=== PATIENT | female | born 1985 | race Caucasian/White ===

== ENCOUNTER 2017-11-20 17:10 | Emergency (ER) | payer SELFPAY ==
[~2017-11-20] VITALS: Ht 162.6 cm; Wt 53.0 kg
[2017-11-20 17:12] VITALS: BP 140/94
[2017-11-20 17:52] LABS: BASOPHILS # (AUTO) 0.02 x10^3/uL (0-0.1); BASOPHILS % (AUTO) 0 % (0-1); EOSINOPHILS # (AUTO) 0.02 x10^3/uL (0-0.4); EOSINOPHILS % (AUTO) 0 % (1-7); LYMPHOCYTES # (AUTO) 2.76 x10^3/uL (1-3.4); LYMPHOCYTES % (AUTO) 28 % (22-44); MD NO; MEAN CORPUSCULAR HGB CONC 33.2 g/dL (32.4-35.8); MEAN CORPUSCULAR VOLUME 93.4 fL (80-100); MONOCYTES # (AUTO) 0.39 x10^3/uL (0.2-0.8); MONOCYTES % (AUTO) 4 % (2-9); NEUTROPHILS # (AUTO) 6.53 x10^3/uL (1.8-6.8); NEUTROPHILS % (AUTO) 67 % (42-75); PLATELET COUNT 274 x10^3/uL (130-400); RED BLOOD COUNT 3.78 x10^6/uL (3.82-5.3); RED CELL DISTRIBUTION WIDTH 17.7 % (9.6-15.2)
[2017-11-20 17:59] LABS: ALANINE AMINOTRANSFERASE 24 U/L (12-78); ALBUMIN 4.3 g/dL (3.4-5.0); ANION GAP 12 mmol/L (5-15); CALCIUM 8.8 mg/dL (8.5-10.1); CHLORIDE 106 mmol/L (98-107); CREATININE 0.91 mg/dL (0.55-1.02)
[2017-11-20 18:04] LABS: ALKALINE PHOSPHATASE 60 U/L (45-117); BILIRUBIN,TOTAL 0.4 mg/dL (0.2-1.0); TOTAL PROTEIN 7.9 g/dL (6.4-8.2)
[2017-11-20] MEDS ORDERED: KETOROLAC 30 MG/1 ML ONE (19:11)
[2017-11-20] MEDS ORDERED: PROMETHAZINE 25 MG/ML, 1ML ONE (19:12)
[2017-11-20] MEDS ORDERED: KETOROLAC 30 MG/1 ML IM ONE (19:30)
[2017-11-20] MEDS ORDERED: PROMETHAZINE 25 MG/ML, 1ML IM ONE (19:30)
[2017-11-20 19:31] LABS: MICROSCOPIC AUTO
[2017-11-20 19:37] LABS: CULTURE INDICATED? NO
== END 2017-11-20 20:38 | disposition home or self-care (01) ==
LOC: ED 20:05
DX: R10.84 Generalized abdominal pain (principal); F17.200 Nicotine dependence, unspecified, uncomplicated
CPT/HCPCS: 36415; 74176; 80053; 81001; 84703; 85025; 96372; 99285; J1885; J2550

== ENCOUNTER 2018-03-18 18:30 | Emergency (ER) | payer SELFPAY ==
[~2018-03-18] VITALS: Ht 160 cm; Wt 51.3 kg
[2018-03-18 18:33] VITALS: BP 132/84
[2018-03-18] MEDS ORDERED: ONDANSETRON 2MG/ML, 2ML IVPush ONE (19:00)
[2018-03-18] MEDS ORDERED: SODIUM CHLORIDE FLUSH 10ML SYR IVF ONE (19:00)
[2018-03-18 19:08] LABS: ALBUMIN 3.8 g/dL (3.4-5.0); ANION GAP 7 mmol/L (5-15); CALCIUM 8.3 mg/dL (8.5-10.1); CHLORIDE 112 mmol/L (98-107); CREATININE 0.92 mg/dL (0.55-1.02)
[2018-03-18] MEDS ORDERED: TRAZ50TA66 PO (19:08)
[2018-03-18] MEDS ORDERED: BUPR-86 PO (19:08)
[2018-03-18] MEDS ORDERED: ACYC800T4 PO (19:08)
[2018-03-18 19:15] LABS: MD YES; MEAN CORPUSCULAR HEMOGLOBIN 27.4 pg (27.0-34.8); MEAN CORPUSCULAR HGB CONC 32.1 g/dL (32.4-35.8); MEAN CORPUSCULAR VOLUME 85.3 fL (80-100); MEAN PLATELET VOLUME 8.1 fL (7.4-10.4); PLATELET COUNT 305 x10^3/uL (130-400); RED BLOOD COUNT 3.73 x10^6/uL (3.82-5.3); RED CELL DISTRIBUTION WIDTH 17.7 % (9.6-15.2)
[2018-03-18] MEDS ORDERED: HYDROmorphone 2 MG/ML, 1ML ONE (19:16)
[2018-03-18] MEDS ORDERED: ONDANSETRON 2MG/ML, 2ML ONE (19:16)
[2018-03-18] MEDS: HYDROmorphone 1 MG/ML, 1ML IVPush PRN ×2 (19:22→20:45)
[2018-03-18 19:26] LABS: HCG UR SG 1.014 (1.003-1.030); MICROSCOPIC AUTO
[2018-03-18 19:27] LABS: CULTURE INDICATED? YES
[2018-03-18 19:36] LABS: LYMPHS% (MANUAL) 26 % (22-44); MONOS#(MANUAL) 0.31 x10^3/uL (0.3-2.7); MONOS% (MANUAL) 4 % (2-9); SEG#(MANUAL) 5.39 x10^3/uL (1.8-6.8); SEGS% (MANUAL) 70 % (42-75)
[2018-03-18 19:37] LABS: ANISOCYTOSIS 1+; OVALOCYTES 1+
[2018-03-18 19:38] LABS: <PLATELET ESTIMATE> ADEQUATE; <PLT MORPHOLOGY> NORMAL PLT MORPH
[2018-03-18] MEDS ORDERED: DIPHENHYDRAMINE 50 MG/ML, 1ML IVPush ONE ×2 (20:30)
[2018-03-18] MEDS ORDERED: DIPHENHYDRAMINE 50 MG/ML, 1ML ONE (20:42)
== END 2018-03-18 22:06 | disposition home or self-care (01) ==
LOC: ED 19:14
DX: N39.0 Urinary tract infection, site not specified (principal); R31.9 Hematuria, unspecified
CPT/HCPCS: 36415; 74176; 76770; 80048; 81001; 81025; 82040; 85025; 87086; 96374; 96375; 96376; 99284; J1170; J1200; J2405